=== PATIENT | female | born 1960 | race Caucasian/White ===

== ENCOUNTER → 2016-04-27 | Outpatient (CLI) | payer OTHER ==
--- NOTE | 2016-04-27 10:05 | MA ---
Screening Digital Mammogram Clinical Indications: Routine screening. Mother with history breast cancer at age 62. Technique: Standard cephalocaudal and mediolateral oblique projections are obtained. This examinatio n is processed [facility] detection [facility]. Comparison: March 24, 2015; March 04, 2014; and studies dating back to September 12, 2007. Breast density: C; The breasts are heterogeneously dense, which may obscure small masses. Findings: CAD was reviewed. Within the lower inner central left breast, there is a possible developin g nodule versus overlapping breast parenchymal tissue. No additional masses are seen within either br east. There are no significant clusters of microcalcifications. The axilla are clear. Impression: Possible developing nodule versus overlapping breast parenchymal tissue lower inner centr al left breast. Recommendation: Compression is recommended of the left breast in CC and mediolateral oblique projecti ons, as well as a 90-degree lateral view for further characterization. If findings are persistent, c onsider ultrasound, as well. Additional imaging evaluation on the left is needed. BI-RADS 0. Dense mammographic pattern limits the sensitivity of mammography in this patient. If there is a clini august palpable abnormality, recommend additional imaging with ultrasound if clinically indicated. [facility] will send a result letter to the patient. Negative mammography should not preclude additional workup of a clinically suspicious finding. The patient's information is entered into a reminder system with a target due date for her next mammo gram.
== END ==
LOC: CIMAGING 07:04
DX: Z12.31 Encounter for screening mammogram for malignant neoplasm of breast (principal); Z80.3 Family history of malignant neoplasm of breast
CPT/HCPCS: G0202

== ENCOUNTER → 2016-05-09 | Outpatient (CLI) | payer OTHER ==
--- NOTE | 2016-05-09 15:50 | MA ---
Diagnostic Digital Mammogram Left Breast, With iCAD Analysis Reason for examination: Evaluate possible developing asymmetry in the central left breast versus ove rlap of normal glandular elements identified on the screening mammographic study of April 27, 2016. Technique: Oblique and craniocaudal spot compression views are obtained. Also, a true lateral is pe rformed. The examination is processed by the iCAD computer-aided detection system. Comparison: Comparison to older studies dating back to September 2008. Findings: Mild asymmetry persists. No suspicious microcalcifications are seen, and no architectural distortion is identified. Impression: Persistent left breast asymmetry requires further evaluation, BI-RADS 0. Recommendation: Targeted left breast ultrasound, which will be subsequently performed today. A verbal report was given to the patient. [facility] with send a result letter.
--- NOTE | 2016-05-09 15:53 | US ---
Left Breast Ultrasound History: Evaluate mild persistent asymmetry in the upper outer left breast noted on diagnostic mammog amado performed earlier today. Technique: Longitudinal and transverse images were obtained utilizing a 15 MHz transducer. Color Dop pler evaluation is employed for assessment of vascularity. Findings: No palpable abnormality is identified. Sonographic interrogation demonstrates scattered fib roglandular elements. No solid or cystic mass is seen. Impression: Benign findings when considering mammographic and sonographic assessment, BI-RADS 2.. Recommendation: Resume routine mammographic screening in one year as long as physical examination is negative.. A verbal report was given to the patient. [facility] will send a result letter to the patient.
== END ==
LOC: FIMAGING 14:51
PROVIDERS: ATTEND Family Medicine
DX: R92.2 Inconclusive mammogram (principal)
CPT/HCPCS: G0206

== ENCOUNTER → 2017-06-05 | Outpatient (CLI) | payer OTHER | LOC: CIMAGING 08:01 | PROVIDERS: ATTEND Family Medicine | DX: Z12.31 Encounter for screening mammogram for malignant neoplasm of breast (principal); Z80.3 Family history of malignant neoplasm of breast ==